=== PATIENT | female | born 1980 | race Caucasian/White ===

== ENCOUNTER 2017-01-06 20:05 | Emergency (ER) | payer BC, MEDICAID ==
[~2017-01-06] VITALS: Ht 175.3 cm; Wt 108.9 kg
[2017-01-06 20:20] VITALS: BP_SYST 164
--- NOTE | 2017-01-06 20:20 | NUR ---
Patient triaged and placed in waiting room. VSS and patient appears in no acute distress at this time. Accompanied by family, awaiting available bed, and MD notified of need for MSE.
--- NOTE | 2017-01-06 22:00 | NUR ---
Patient to ER bed 6 to gown for evaluation. Side rails up. Report given to My RN.
--- NOTE | 2017-01-06 22:15 | NUR ---
PT came in from home, A&Ox4, c/o flu like symptoms, body aches /, coughing. Pt denies any N/V/D, chest pain or SOB. Safety maintained. Continue to monitor
--- NOTE | 2017-01-06 22:43 | NUR ---
MD allen at bedside examining pt
[2017-01-06 23:05] LABS: HCG,QUAL RESULT NEGATIVE (NEGATIVE)
[2017-01-06 23:21] LABS: INFLUENZA A&B ANTIGEN SCREEN NEGATIVE FOR A & B (NEGATIVE); STREPTOCOCCUS A SCREEN (RAPID) NEGATIVE (NEGATIVE)
[2017-01-07 00:27] VITALS: BP_SYST 145
--- NOTE | 2017-01-07 00:27 | NUR ---
Patient given written and verbal discharge instructions and verbalizes understanding. ER MD discussed with patient the results and treatment provided. Patient in stable condition. ID arm band removed. Rx of Azithromycin, Albuterol Inhalation Aerosol given. Patient educated on pain management and to follow up with PMD. Pain Scale 2/10. Opportunity for questions provided and answered.
== END 2017-01-07 00:27 | disposition home or self-care (01) ==
LOC: SED 20:05
DX: J20.9 Acute bronchitis, unspecified (principal); Z90.49 Acquired absence of other specified parts of digestive tract
CPT/HCPCS: 36415; 71020-TC; 81025; 84703; 86403; 86710; 87081; 99285

== ENCOUNTER 2019-06-30 19:19 | Emergency (ER) | payer BC ==
[~2019-06-30] VITALS: Ht 175.3 cm; Wt 122.5 kg
[~2019-06-30 19:19] MED LIST: ENOX100D3 SQ
[2019-06-30 21:09] VITALS: BP_SYST 122
[2019-06-30 22:18] LABS: BASOPHILS % (AUTO) 0.6 % (0.0-2.0); EOSINOPHILS # (AUTO) 0.2 K/uL (0.0-0.4); HEMATOCRIT 38.9 % (36-48); LYMPHOCYTES # (AUTO) 2.7 K/uL (1.0-5.5); LYMPHOCYTES % (AUTO) 32.3 % (20.5-51.5); MEAN CORPUSCULAR HEMOGLOBIN 28 pg (27-31); MEAN CORPUSCULAR HGB CONC 33 % (32-36); MEAN CORPUSCULAR VOLUME 84 fL (79.0-98.0); MONOCYTES # (AUTO) 0.7 K/uL (0.0-1.0); MONOCYTES % (AUTO) 8.5 % (1.7-9.3); NEUTROPHILS # (AUTO) 4.8 K/uL (1.8-7.7); NEUTROPHILS % (AUTO) 56.6 % (40.0-70.0); PLATELET COUNT (AUTO) 257 K/uL (130-430); RED BLOOD CELL COUNT(AUTO) 4.65 MIL/uL (4.2-6.2); RED CELL DISTRIBUTION WIDTH 14.1 % (9.0-15.0); WHITE BLOOD COUNT (AUTO) 8.5 K/uL (4.8-10.8)
[2019-06-30 22:37] LABS: CALCIUM 8.4 mg/dL (8.4-11.0)
[2019-06-30 22:40] LABS: ALBUMIN 3.1 g/dL (3.4-4.8); CREATININE 0.92 mg/dL (0.55-1.30); INR 0.9 (0.8-1.2); POTASSIUM 3.7 mmol/L (3.5-5.1); PROTHROMBIN TIME 9.4 SECS (9.5-12.5); TOTAL BILIRUBIN 0.2 mg/dL (0.0-1.0)
[2019-07-01 00:25] VITALS: BP_SYST 122
== END 2019-07-01 00:25 | disposition home or self-care (01) ==
LOC: SED 19:19
DX: M79.604 Pain in right leg (principal); Z86.718 Personal history of other venous thrombosis and embolism
CPT/HCPCS: 36415; 80053; 81025; 85025; 85610-TC; 85730-TC; 93970; 99284

== ENCOUNTER 2021-11-19 06:45 | Emergency (ER) | payer BC ==
[~2021-11-19] VITALS: Ht 175.3 cm; Wt 122.5 kg
--- NOTE | 2021-11-19 06:52 | NUR ---
AMBULATED TO ED 2 AT THIS TIME. REPORTS LEFT FOOT PAIN ONSET YESTERDAY. HISTORY OF DVT AND BLOOD CLOTS
[2021-11-19 06:53] VITALS: BP_SYST 135
[2021-11-19] MEDS ORDERED: IBUP-1969 PO (07:16)
--- NOTE | 2021-11-19 08:43 | NUR ---
remains awaiting for ultrasound
--- NOTE | 2021-11-19 09:05 | NUR ---
US AT BEDSIDE
--- NOTE | 2021-11-19 09:29 | NUR ---
Orthostatic vital signs done. SUPINE 143/79 HR 86 SITTING 141/86 HR 88 STANDING 131/102 HR99
[2021-11-19 09:53] VITALS: BP_SYST 114
--- NOTE | 2021-11-19 09:54 | NUR ---
Patient given written and verbal discharge instructions and verbalizes understanding. MARYLOU sutherland MD discussed with patient the results and treatment provided. Patient in stable condition. ID arm band removed. Rx of motrin given. Patient educated on pain management and to follow up with PMD. Pain Scale 2. Opportunity for questions provided and answered. Medication side effect fact sheet provided.
== END 2021-11-19 09:54 | disposition home or self-care (01) ==
LOC: SED 06:45
DX: M79.672 Pain in left foot (principal); Z79.899 Other long term (current) drug therapy; Z86.718 Personal history of other venous thrombosis and embolism; Z79.01 Long term (current) use of anticoagulants
CPT/HCPCS: 93971; 99284